=== PATIENT | male | born 1980 | race African-American/Black ===

== ENCOUNTER 2019-08-13 13:08 | Emergency (ER) | payer MEDICAID ==
[~2019-08-13] VITALS: Ht 190.5 cm; Wt 99.8 kg
[~2019-08-13 13:08] MED LIST: ZANTAC
[2019-08-13] MEDS ORDERED: SODIUM CHLORIDE 0.9% 1,000 ML IV ONE (13:17)
[2019-08-13 13:40] VITALS: BP 127/82
== END 2019-08-13 14:57 | disposition home or self-care (01) ==
LOC: EDBD 13:08 → ER 13:08
DX: E86.0 Dehydration (principal); R19.7 Diarrhea, unspecified
CPT/HCPCS: 96360; 99283; J7030